=== PATIENT | male | born 1960 | race Hispanic/Latino ===

== ENCOUNTER 2019-11-16 13:35 | Emergency (ER) | payer MEDICARE ==
--- NOTE | 2019-11-16 14:23 | Emergency Department Report ---
ED General Adult HPI - General Chief complaint: Medical Clearance Stated complaint: MALAISE Time Seen by Provider: 11/16/19 14:14 Source: EMS Mode of arrival: Stretcher Limitations: Altered Mental Status - History of Present Illness Initial comments: 59-year-old male with history of autism, seizure disorder, sent to ED by caregiver at [facility]. Caregiver states that patient has been refusing to eat or drink, and has had no bowel movement or urine output since being discharged from here 2 days ago. Patient was admitted on 11/11/19 for vomi ting, diarrhea, small bowel obstruction, and pneumonia. Patient is nonverbal, non-ambulatory, requires assistance with feeding. -: days(s) (2) Severity scale (0 -10): 0 Consistency: constant Associated Symptoms: cough, loss of appetite, malaise - Related Data Home Medications Medication Instructions Recorded Confirmed Last Taken Levothyroxine [Synthroid] 75 mcg PO QAM 11/11/19 11/11/19 Unknown Losartan [Cozaar] 50 mg PO QDAY 11/11/19 11/11/19 Unknown OXcarbazepine [Trileptal] 900 mg PO BID 11/11/19 11/11/19 Unknown lamoTRIgine [LaMICtal] 300 mg PO BID 11/11/19 11/11/19 Unknown Previous Rx's Medication Instructions Recorded Last Taken Type levETIRAcetam [Keppra TAB] 1,500 mg PO BID 30 Days 11/14/19 Unknown Rx Allergies Allergy/AdvReac Type Severity Reaction Status Date / Time phenobarbital Allergy Unknown Verified 11/16/19 14:08 phenytoin [From Dilantin] Allergy Unknown Verified 11/16/19 14:08 tomato Allergy Unknown Verified 11/16/19 14:08 ED Review of Systems ROS: Stated complaint: MALISE Other details as noted in HPI Comment: Unobtainable due to pts medical conditions ED Past Medical Hx - Past Medical History Previous Medical History?: Yes Hx Hypertension: Yes Hx GERD: Yes Hx Seizures: Yes Additional medical history: Autism - Social History Smoking Status: Unknown if ever smoked - Medications Home Medications: Home Medications Medication Instructions Recorded Confirmed Last Taken Type Levothyroxine [Synthroid] 75 mcg PO QAM 11/11/19 11/11/19 Unknown History Losartan [Cozaar] 50 mg PO QDAY 11/11/19 11/11/19 Unknown History OXcarbazepine [Trileptal] 900 mg PO BID 11/11/19 11/11/19 Unknown History lamoTRIgine [LaMICtal] 300 mg PO BID 11/11/19 11/11/19 Unknown History levETIRAcetam [Keppra TAB] 1,500 mg PO BID 30 Days 11/14/19 Unknown Rx ED Physical Exam - General Limitations: Altered Mental Status General appearance: alert, in no apparent distress, other (appears frail) - Head Head exam: Present: atraumatic, normocephalic - Eye Eye exam: Present: normal appearance - ENT ENT exam: Present: mucous membranes moist - Neck Neck exam: Present: normal inspection - Respiratory Respiratory exam: Present: normal lung sounds bilaterally. Absent: respiratory distress - Cardiovascular Cardiovascular Exam: Present: regular rate, normal rhythm - GI/Abdominal GI/Abdominal exam: Present: soft. Absent: distended, tenderness - Extremities Exam Extremities exam: Present: normal inspection - Neurological Exam Neurological exam: Present: alert, other (pt is awake, he is nonverbal, but he will occaisionally grunt and scream out loud) - Skin Skin exam: Present: warm, dry, intact, normal color ED Course Vital Signs 11/16/19 11/16/19 11/16/19 14:10 14:17 14:18 Temperature Pulse Rate 78 93 H Respiratory 10 L 12 16 Rate Blood Pressure Blood Pressure [Right] O2 Sat by Pulse 98 Oximetry 11/16/19 11/16/19 11/16/19 15:01 15:27 16:00 Temperature 98.2 F Pulse Rate 80 84 66 Respiratory 15 14 12 Rate Blood Pressure 126/100 150/84 Blood Pressure 151/95 [Right] O2 Sat by Pulse 90 100 99 Oximetry 11/16/19 17:00 Temperature Pulse Rate 69 Respiratory 15 Rate Blood Pressure 131/83 Blood Pressure [Right] O2 Sat by Pulse 99 Oximetry ED Medical Decision Making - Lab Data Result diagrams: 11/16/19 Unknown 11/16/19 Unknown - Medical Decision Making Caregiver reports loss of appetite since getting discharged from the hospital 2 days ago. Pt likely has not had a bowel movement because he has had decreased appetite. There was a bowel movement documented 2 days ago on 11/14/19, the day of discharge. Pt's abdomen is soft and nondistended. No vomiting reported or observed. Caregiver also reported that pt was not urinating, however, Taina, RN today, states pt's diaper was actually already wet when she obtained the straight cath. Pt has small amt of WBCs, but no bacteria present. Likely no infection. Pt had a negative urine culture from 11/11/19. Labs and vitals are normal. Pt is very active, moving all over the bed, moving all extremities. Mucous membranes do not appear dry. No ketones in the urine. He does not appear dehydrated. Pt was still given 1L bolus normal saline. At this time, pt does not meet inpatient criteria. Will d/c home. Return precautions given. - Differential Diagnosis UTI, dehydration, ARF Critical care attestation.: If time is entered above; I have spent that time in minutes in the direct care of this critically ill patient, excluding procedure time. ED Disposition Clinical Impression: Loss of appetite Disposition: DC-01 TO HOME OR SELFCARE Is pt being admited?: No Condition: Stable Referrals: PRIMARY CARE, [Primary Care Provider] - 3-5 Days Time of Disposition: 18:29
[2019-11-16 15:46] LABS: Basophils % (Auto) 0.4 % (0.0-1.8); Eosinophils # (Auto) 0.1 K/mm3 (0.0-0.4); Eosinophils % (Auto) 1.5 % (0.0-4.3); Hematocrit 32.4 % (35.5-45.6); Hemoglobin 11.3 gm/dl (11.8-15.2); Lymphocytes # (Auto) 1.7 K/mm3 (1.2-5.4); Lymphocytes % (Auto) 32.5 % (13.4-35.0); Mean Corpuscular HGB Conc 35 % (32-34); Mean Corpuscular Volume 92 fl (84-94); Monocytes # (Auto) 0.4 K/mm3 (0.0-0.8); Monocytes % (Auto) 7.6 % (0.0-7.3); Platelet Count 231 K/mm3 (140-440); Red Blood Count 3.52 M/mm3 (3.65-5.03); Red Cell Distribution Width 12.5 % (13.2-15.2)
[2019-11-16 15:59] LABS: BUN/Creatinine Ratio 13; Blood Urea Nitrogen 9 mg/dL (9-20); Calcium 9.3 mg/dL (8.4-10.2); Hemolysis Index 5
[2019-11-16 16:02] LABS: Bilirubin,Urine NEG (Negative); Blood,Urine NEG (Negative); Color,Urine Amber (Yellow); Mucus,Urine 3+ /HPF; Urobilinogen,Urine < 2.0 mg/dL (<2.0)
[2019-11-16] MEDS ORDERED: SODIUM CHLORIDE 0.9% 1000 ML 1,000 ML IV ONE (16:22)
[2019-11-16 18:40] VITALS: BP 148/85
== END 2019-11-16 19:05 | disposition home or self-care (01) ==
LOC: ED 13:35
DX: R63.0 Anorexia (principal); R53.81 Other malaise; R19.7 Diarrhea, unspecified; I10 Essential (primary) hypertension; K21.9 Gastro-esophageal reflux disease without esophagitis; R56.9 Unspecified convulsions; F84.0 Autistic disorder; Z68.1 Body mass index [BMI] 19.9 or less, adult; Z79.899 Other long term (current) drug therapy; Z88.8 Allergy status to other drugs, medicaments and biological substances; Z91.018 Allergy to other foods
CPT/HCPCS: 36415; 80048; 81001; 85025; 87086; 96360; 99284; J7030